=== PATIENT | female | born 1940 | race Caucasian/White ===

== ENCOUNTER 2024-07-17 04:29 | Inpatient (IN) | payer MEDICARE, OTHER ==
[~2024-07-17] VITALS: Ht 162.6 cm; Wt 58.5 kg
[2024-07-17 05:26] LABS: BASOPHILS % (AUTO) 0.4 % (0.0-2.0); EOSINOPHILS # (AUTO) 0.1 K/uL (0.0-0.7); EOSINOPHILS % (AUTO) 1.8 % (0.0-6.0); HEMATOCRIT 35 % (33-45); HEMOGLOBIN 11.6 g/dL (11.5-14.8); LYMPHOCYTES # (AUTO) 1.1 K/uL (0.8-4.8); LYMPHOCYTES % (AUTO) 16.4 % (20.0-44.0); MEAN CORPUSCULAR HEMOGLOBIN 29 PG (26.0-33.0); MEAN CORPUSCULAR HGB CONC 33 g/dl (31.0-36.0); MEAN CORPUSCULAR VOLUME 89 fL (82-100); MONOCYTES # (AUTO) 0.6 K/uL (0.1-1.30); NEUTROPHILS # (AUTO) 4.9 K/uL (1.8-8.9); NEUTROPHILS % (AUTO) 72.4 % (43.0-81.0); PLATELET COUNT (AUTO) 162 K/uL (150-450); RED BLOOD CELL COUNT(AUTO) 3.99 MIL/uL (4.0-5.2); RED CELL DISTRIBUTION WIDTH 13.3 % (11.5-15.0); WHITE BLOOD COUNT (AUTO) 6.8 K/uL (4.3-11.0)
[2024-07-17 05:40] LABS: ALANINE AMINOTRANSFERASE 33 U/L (12-78); ALBUMIN 3.8 g/dL (3.4-5.0); ALCOHOL, BLOOD < 3 mg/dL (0-10); ALKALINE PHOSPHATASE 70 U/L (46-116); ASPARTATE AMINOTRANSFERASE 58 U/L (15-37); BILIRUBIN,DIRECT 0.1 mg/dL (0.0-0.2); BILIRUBIN,TOTAL 0.6 mg/dL (0.2-1.0); CALCIUM, SERUM 10.2 mg/dL (8.5-10.1); CARBON DIOXIDE 27 mmol/L (21-32); CHLORIDE 106 mmol/L (98-107); GLUCOSE 92 mg/dL (74-106); POTASSIUM 4.4 mmol/L (3.5-5.1); SODIUM SERUM 142 mmol/L (136-145); TOTAL PROTEIN, SERUM 6.9 g/dL (6.4-8.2); UREA NITROGEN, BLOOD 55 mg/dL (7-18)
[2024-07-17 05:52] LABS: SALICYLATE 1.2 mg/dL (2.8-20.0)
[2024-07-17 05:53] LABS: ACETAMINOPHEN <10 ug/ml (10-30)
[2024-07-17] MEDS: IV NS 0.9% 1,000 ML BAG IV ONE (06:26)
[2024-07-17] MEDS ORDERED: HALOPERIDOL LACTATE INJ 5 MG/ML VIAL ONE (08:07)
[2024-07-17] MEDS: HALOPERIDOL LACTATE INJ 5 MG/ML VIAL IM STA (08:15)
[2024-07-17] MEDS ORDERED: MAG HYDROX/AL HYDROX/SIMETH 30 ML UDC PO PRN (10:00)
[2024-07-17] MEDS ORDERED: ZOLPIDEM TARTRATE 5 MG TABLET PO PRN (10:00)
[2024-07-17] MEDS ORDERED: MAGNESIUM HYDROXIDE 30 ML UDC PO PRN (10:00)
[2024-07-17] MEDS ORDERED: Z GUARD REMEDY 4 OZ OINT TP PRN (10:00)
[2024-07-17] MEDS ORDERED: ONDANSETRON HCL/PF 4 MG/2 ML VIAL IVP PRN (10:00)
[2024-07-17] MEDS ORDERED: ACETAMINOPHEN 325 MG TABLET PO PRN (10:00)
[2024-07-17] MEDS ORDERED: BUPR-319 PO (12:34)
[2024-07-17] MEDS ORDERED: FOLI0.4T6 PO (12:34)
[2024-07-17] MEDS ORDERED: PANT40TA49 PO (12:34)
[2024-07-17] MEDS ORDERED: BENZ-13 PO (12:34)
[2024-07-17] MEDS ORDERED: ESCI20TA PO (12:34)
[2024-07-17] MEDS ORDERED: METO50TA16 PO (12:34)
[2024-07-17] MEDS ORDERED: WITC1MED22 TP (12:34)
[2024-07-17] MEDS ORDERED: SACU1TAB PO (12:34)
[2024-07-17] MEDS ORDERED: CETI10TA14 PO (12:34)
[2024-07-17] MEDS ORDERED: ALBU8.5H8 IH (12:34)
[2024-07-17] MEDS ORDERED: ATOR20TA PO (12:34)
[2024-07-17 16:00] VITALS: BP 158/62; TEMP 98.6; O2SAT 96
[2024-07-17] MEDS: METOPROLOL TARTRATE 50 MG TABLET PO SCH (17:30)
[2024-07-17 20:00] VITALS: BP 145/62; TEMP 98.4; O2SAT 97
[2024-07-17] MEDS: ATORVASTATIN 10 MG TABLET PO SCH (22:21)
[2024-07-17] MEDS: IV NS 0.9% 1,000 ML IV PRN (22:34)
[2024-07-18 04:00] VITALS: BP 160/67; TEMP 98.5; O2SAT 98
[2024-07-18 07:36] LABS: BASOPHILS % (AUTO) 0.7 % (0.0-2.0); EOSINOPHILS # (AUTO) 0.1 K/uL (0.0-0.7); EOSINOPHILS % (AUTO) 1.9 % (0.0-6.0); HEMATOCRIT 32 % (33-45); HEMOGLOBIN 10.8 g/dL (11.5-14.8); LYMPHOCYTES # (AUTO) 1.4 K/uL (0.8-4.8); LYMPHOCYTES % (AUTO) 25.4 % (20.0-44.0); MEAN CORPUSCULAR HEMOGLOBIN 30 PG (26.0-33.0); MEAN CORPUSCULAR HGB CONC 34 g/dl (31.0-36.0); MEAN CORPUSCULAR VOLUME 89 fL (82-100); MONOCYTES # (AUTO) 0.6 K/uL (0.1-1.30); MONOCYTES % (AUTO) 10.6 % (2.0-12.0); NEUTROPHILS # (AUTO) 3.3 K/uL (1.8-8.9); NEUTROPHILS % (AUTO) 61.4 % (43.0-81.0); PLATELET COUNT (AUTO) 139 K/uL (150-450); RED BLOOD CELL COUNT(AUTO) 3.58 MIL/uL (4.0-5.2); RED CELL DISTRIBUTION WIDTH 13.2 % (11.5-15.0); WHITE BLOOD COUNT (AUTO) 5.5 K/uL (4.3-11.0)
[2024-07-18 08:00] VITALS: BP 158/62; TEMP 98; O2SAT 94
[2024-07-18 08:01] LABS: CALCIUM, SERUM 9.4 mg/dL (8.5-10.1); CARBON DIOXIDE 24 mmol/L (21-32); CHLORIDE 113 mmol/L (98-107); CREATININE 1.1 mg/dL (0.6-1.3); GLUCOSE 89 mg/dL (74-106); MAGNESIUM 1.9 mg/dL (1.8-2.4); PHOSPHORUS 2.6 mg/dL (2.5-4.9); POTASSIUM 4.1 mmol/L (3.5-5.1); SODIUM SERUM 143 mmol/L (136-145); UREA NITROGEN, BLOOD 31 mg/dL (7-18)
[2024-07-18] MEDS: BUPROPION XL 150 MG TAB.ER.24 PO SCH (08:24)
[2024-07-18] MEDS: FOLIC ACID 1 MG TABLET PO SCH (08:24)
[2024-07-18] MEDS: SACUBITRIL/VALSARTAN 24/26MG TABLET PO SCH (08:24)
[2024-07-18] MEDS: ESCITALOPRAM OXALATE (10 MG) 10 MG TABLET PO SCH (08:24)
[2024-07-18] MEDS: PANTOPRAZOLE 40 MG TABLET.DR PO SCH (08:24)
[2024-07-18 16:00] VITALS: BP 147/58; TEMP 97.9; O2SAT 94
[2024-07-18] MEDS: OLANZAPINE 2.5 MG TABLET PO SCH (16:56)
[2024-07-19] VITALS: BP 147/58; TEMP 97.9; O2SAT 94
[2024-07-19] MEDS: CLONIDINE HCL 0.1 MG TABLET PO PRN (06:10)
[2024-07-19 07:58] LABS: BASOPHILS % (AUTO) 0.5 % (0.0-2.0); EOSINOPHILS # (AUTO) 0.2 K/uL (0.0-0.7); EOSINOPHILS % (AUTO) 3.3 % (0.0-6.0); HEMATOCRIT 33 % (33-45); HEMOGLOBIN 10.9 g/dL (11.5-14.8); LYMPHOCYTES # (AUTO) 1.2 K/uL (0.8-4.8); LYMPHOCYTES % (AUTO) 19.1 % (20.0-44.0); MEAN CORPUSCULAR HEMOGLOBIN 30 PG (26.0-33.0); MEAN CORPUSCULAR HGB CONC 33 g/dl (31.0-36.0); MEAN CORPUSCULAR VOLUME 90 fL (82-100); MONOCYTES # (AUTO) 0.5 K/uL (0.1-1.30); MONOCYTES % (AUTO) 8.5 % (2.0-12.0); NEUTROPHILS # (AUTO) 4.2 K/uL (1.8-8.9); NEUTROPHILS % (AUTO) 68.6 % (43.0-81.0); PLATELET COUNT (AUTO) 108 K/uL (150-450); RED BLOOD CELL COUNT(AUTO) 3.66 MIL/uL (4.0-5.2); WHITE BLOOD COUNT (AUTO) 6.1 K/uL (4.3-11.0)
[2024-07-19 08:00] VITALS: BP 155/65; TEMP 97.7; O2SAT 94
[2024-07-19 08:08] LABS: CALCIUM, SERUM 9.1 mg/dL (8.5-10.1); CARBON DIOXIDE 20 mmol/L (21-32); CHLORIDE 114 mmol/L (98-107); GLUCOSE 109 mg/dL (74-106); POTASSIUM 3.9 mmol/L (3.5-5.1); SODIUM SERUM 143 mmol/L (136-145); UREA NITROGEN, BLOOD 27 mg/dL (7-18)
[2024-07-19] MEDS: ENOXAPARIN SODIUM 30 MG/0.3 ML DISP.SYRIN SQ SCH (08:53)
[2024-07-19] MEDS: ENSURE ENLIVE 237 ML LIQUID (VANILLA) PO SCH (12:53)
[2024-07-19] MEDS: OLANZAPINE 2.5 MG TABLET PO SCH (13:01)
[2024-07-19 16:00] VITALS: BP 164/69; TEMP 97.3; O2SAT 94
[2024-07-19 21:45] VITALS: BP 188/74; TEMP 98.3; O2SAT 98
[2024-07-19] MEDS: SACUBITRIL/VALSARTAN 24/26MG TABLET PO SCH (22:07)
[2024-07-20 04:00] VITALS: BP 186/75; TEMP 98.3
[2024-07-20 08:00] VITALS: BP 186/75; TEMP 97.3; O2SAT 98
[2024-07-20 10:00] VITALS: BP 136/67; TEMP 97.4; O2SAT 98
[2024-07-20 16:00] VITALS: BP 147/64; TEMP 97.8; O2SAT 98
[2024-07-20 20:00] VITALS: BP_SYST 124; BP_SYST 146; BP_DIAS 85; BP_DIAS 90; TEMP 98; TEMP 98.2; O2SAT 93; O2SAT 97
[2024-07-21 04:00] VITALS: BP 148/75; TEMP 98.1; O2SAT 97
[2024-07-21 07:06] LABS: APPEARANCE,URINE CLEAR (CLEAR); BILIRUBIN,URINE NEGATIVE (NEGATIVE); BLOOD, URINE NEGATIVE Ery/uL (NEGATIVE); COLOR,URINE YELLOW (YELLOW); KETONES,URINE NEGATIVE (NEGATIVE); LEUKOCYTE ESTERASE ,URINE TRACE (NEGATIVE); NITRITE, URINE NEGATIVE (NEGATIVE); PH,URINE 5.5 (5.0-8.0); PROTEIN,URINE NEGATIVE (NEGATIVE); UGLUCOSE NEGATIVE (NEGATIVE); UROBILINOGEN,URINE 0.2 EU/dL (0.2)
[2024-07-21 07:26] LABS: ADD URINE CULTURE NO; BACTERIA,URINE None seen /HPF (None Seen); RBC,URINE 0-2 /HPF (0-2); TRICHOMONAS,URINE None Seen /HPF (None Seen); YEAST,URINE None Seen /HPF (None Seen)
[2024-07-21 07:27] LABS: FATTY CASTS,URINE 0-1 /LPF (None Seen); MUCUS,URINE Few /LPF (None Seen)
[2024-07-21 08:00] VITALS: BP 195/71; TEMP 97.1; O2SAT 96
[2024-07-21] MEDS: AMLODIPINE BESYLATE 2.5 MG TABLET PO SCH (08:50)
[2024-07-21 09:30] LABS: BASOPHILS % (AUTO) 0.4 % (0.0-2.0); EOSINOPHILS # (AUTO) 0.3 K/uL (0.0-0.7); EOSINOPHILS % (AUTO) 5.2 % (0.0-6.0); HEMATOCRIT 36 % (33-45); HEMOGLOBIN 12.1 g/dL (11.5-14.8); LYMPHOCYTES # (AUTO) 0.9 K/uL (0.8-4.8); LYMPHOCYTES % (AUTO) 15.3 % (20.0-44.0); MEAN CORPUSCULAR HEMOGLOBIN 30 PG (26.0-33.0); MEAN CORPUSCULAR HGB CONC 34 g/dl (31.0-36.0); MEAN CORPUSCULAR VOLUME 88 fL (82-100); MONOCYTES # (AUTO) 0.5 K/uL (0.1-1.30); NEUTROPHILS # (AUTO) 4.2 K/uL (1.8-8.9); NEUTROPHILS % (AUTO) 71.1 % (43.0-81.0); PLATELET COUNT (AUTO) 153 K/uL (150-450); RED BLOOD CELL COUNT(AUTO) 4.08 MIL/uL (4.0-5.2)
[2024-07-21 09:43] LABS: CALCIUM, SERUM 9.9 mg/dL (8.5-10.1); CARBON DIOXIDE 28 mmol/L (21-32); CHLORIDE 108 mmol/L (98-107); GLUCOSE 95 mg/dL (74-106); POTASSIUM 4.4 mmol/L (3.5-5.1); SODIUM SERUM 145 mmol/L (136-145); UREA NITROGEN, BLOOD 40 mg/dL (7-18)
[2024-07-21 16:00] VITALS: BP 144/61; TEMP 97.1; O2SAT 98
[2024-07-21 18:00] VITALS: BP 144/61; TEMP 97.1; O2SAT 98
[2024-07-21] MEDS: CEFTRIAXONE 1 G in IV D5W 50 ML IV SCH (18:21)
[2024-07-21 20:00] VITALS: BP 127/68; TEMP 98.6; O2SAT 98
[2024-07-22 04:00] VITALS: BP 161/68; TEMP 98.5; O2SAT 95
[2024-07-22 07:20] LABS: CALCIUM, SERUM 9.6 mg/dL (8.5-10.1); CARBON DIOXIDE 31 mmol/L (21-32); CHLORIDE 107 mmol/L (98-107); CREATININE 1.1 mg/dL (0.6-1.3); GLUCOSE 97 mg/dL (74-106); POTASSIUM 4.1 mmol/L (3.5-5.1); SODIUM SERUM 142 mmol/L (136-145); UREA NITROGEN, BLOOD 51 mg/dL (7-18)
[2024-07-22 07:21] LABS: BASOPHILS % (AUTO) 0.6 % (0.0-2.0); EOSINOPHILS # (AUTO) 0.3 K/uL (0.0-0.7); EOSINOPHILS % (AUTO) 4.9 % (0.0-6.0); HEMATOCRIT 35 % (33-45); HEMOGLOBIN 11.5 g/dL (11.5-14.8); LYMPHOCYTES # (AUTO) 1.4 K/uL (0.8-4.8); LYMPHOCYTES % (AUTO) 24.7 % (20.0-44.0); MEAN CORPUSCULAR HEMOGLOBIN 29 PG (26.0-33.0); MEAN CORPUSCULAR HGB CONC 33 g/dl (31.0-36.0); MEAN CORPUSCULAR VOLUME 88 fL (82-100); MONOCYTES # (AUTO) 0.6 K/uL (0.1-1.30); MONOCYTES % (AUTO) 10.2 % (2.0-12.0); NEUTROPHILS # (AUTO) 3.4 K/uL (1.8-8.9); NEUTROPHILS % (AUTO) 59.6 % (43.0-81.0); PLATELET COUNT (AUTO) 142 K/uL (150-450); RED BLOOD CELL COUNT(AUTO) 3.94 MIL/uL (4.0-5.2); RED CELL DISTRIBUTION WIDTH 13.3 % (11.5-15.0); WHITE BLOOD COUNT (AUTO) 5.8 K/uL (4.3-11.0)
[2024-07-22 08:00] VITALS: BP 133/54; TEMP 97.9; O2SAT 95
[2024-07-22 16:00] VITALS: BP 119/48; TEMP 97.7; O2SAT 95
[2024-07-22 20:00] VITALS: BP 113/46; TEMP 98.2; O2SAT 95
[2024-07-22] MEDS: IV NS 0.9% 1,000 ML BAG IV PRN (23:44)
[2024-07-23 04:00] VITALS: BP 116/61; TEMP 98.4; O2SAT 95
[2024-07-23 07:24] LABS: BASOPHILS % (AUTO) 0.8 % (0.0-2.0); EOSINOPHILS # (AUTO) 0.3 K/uL (0.0-0.7); EOSINOPHILS % (AUTO) 4.6 % (0.0-6.0); HEMATOCRIT 32 % (33-45); HEMOGLOBIN 10.5 g/dL (11.5-14.8); LYMPHOCYTES # (AUTO) 1.4 K/uL (0.8-4.8); LYMPHOCYTES % (AUTO) 24.3 % (20.0-44.0); MEAN CORPUSCULAR HEMOGLOBIN 29 PG (26.0-33.0); MEAN CORPUSCULAR HGB CONC 33 g/dl (31.0-36.0); MEAN CORPUSCULAR VOLUME 89 fL (82-100); MONOCYTES # (AUTO) 0.6 K/uL (0.1-1.30); MONOCYTES % (AUTO) 10.7 % (2.0-12.0); NEUTROPHILS # (AUTO) 3.5 K/uL (1.8-8.9); NEUTROPHILS % (AUTO) 59.6 % (43.0-81.0); PLATELET COUNT (AUTO) 144 K/uL (150-450); RED CELL DISTRIBUTION WIDTH 13.5 % (11.5-15.0); WHITE BLOOD COUNT (AUTO) 5.9 K/uL (4.3-11.0)
[2024-07-23 07:28] LABS: CALCIUM, SERUM 9.4 mg/dL (8.5-10.1); CARBON DIOXIDE 32 mmol/L (21-32); CHLORIDE 109 mmol/L (98-107); CREATININE 1.3 mg/dL (0.6-1.3); GLUCOSE 101 mg/dL (74-106); POTASSIUM 4.6 mmol/L (3.5-5.1); SODIUM SERUM 144 mmol/L (136-145); UREA NITROGEN, BLOOD 60 mg/dL (7-18)
[2024-07-23 08:00] VITALS: BP 170/68; TEMP 97.7; O2SAT 95
[2024-07-23] MEDS ORDERED: Olanzapine PO (10:08)
[2024-07-23] MEDS ORDERED: ENOX30DI SQ (10:08)
[2024-07-23] MEDS ORDERED: LACT-246 PO (10:08)
[2024-07-23] MEDS ORDERED: CEPH-570 PO (12:59)
[2024-07-23] MEDS ORDERED: IV NS 0.9% 1,000 ML BAG IV PRN (13:00)
[2024-07-23] MEDS: IV NS 0.9% 1,000 ML IV PRN (14:44)
[2024-07-23 16:00] VITALS: BP 136/62; TEMP 97.7; O2SAT 97
[2024-07-23 18:00] VITALS: BP 136/62; TEMP 97.7; O2SAT 97
[2024-07-23 20:00] VITALS: BP 157/62; TEMP 98.4; O2SAT 97
[2024-07-24 04:58] VITALS: BP 151/65; TEMP 98.2; O2SAT 95
[2024-07-24 08:00] VITALS: BP 157/65; TEMP 98.2; O2SAT 97
[2024-07-24] MEDS: AZITHROMYCIN 250 MG TABLET PO SCH (12:22)
[2024-07-24 12:29] LABS: CALCIUM, SERUM 9.4 mg/dL (8.5-10.1); CARBON DIOXIDE 28 mmol/L (21-32); CHLORIDE 108 mmol/L (98-107); CREATININE 1.1 mg/dL (0.6-1.3); GLUCOSE 85 mg/dL (74-106); POTASSIUM 4.1 mmol/L (3.5-5.1); SODIUM SERUM 147 mmol/L (136-145); UREA NITROGEN, BLOOD 47 mg/dL (7-18)
[2024-07-24 16:00] VITALS: BP 146/68; TEMP 97.8; O2SAT 96
[2024-07-24 20:00] VITALS: BP 181/71; TEMP 99.3; O2SAT 97
[2024-07-24] MEDS: ALBUTEROL SULFATE 8 GM HFA.AER.AD IH PRN (20:23)
[2024-07-24] MEDS ORDERED: ALBUTEROL FS 2.5 MG/3 ML VIAL.NEB NEB PRN (21:00)
[2024-07-25 04:00] VITALS: BP 139/63; TEMP 98.6; O2SAT 95
[2024-07-25 06:49] LABS: BASOPHILS # (AUTO) 0.1 K/uL (0.0-0.2); BASOPHILS % (AUTO) 0.9 % (0.0-2.0); EOSINOPHILS # (AUTO) 0.4 K/uL (0.0-0.7); EOSINOPHILS % (AUTO) 6.2 % (0.0-6.0); HEMATOCRIT 34 % (33-45); HEMOGLOBIN 11.4 g/dL (11.5-14.8); LYMPHOCYTES # (AUTO) 1.7 K/uL (0.8-4.8); LYMPHOCYTES % (AUTO) 27.5 % (20.0-44.0); MEAN CORPUSCULAR HEMOGLOBIN 31 PG (26.0-33.0); MEAN CORPUSCULAR HGB CONC 34 g/dl (31.0-36.0); MEAN CORPUSCULAR VOLUME 90 fL (82-100); MONOCYTES # (AUTO) 0.6 K/uL (0.1-1.30); MONOCYTES % (AUTO) 9.8 % (2.0-12.0); NEUTROPHILS # (AUTO) 3.4 K/uL (1.8-8.9); NEUTROPHILS % (AUTO) 55.6 % (43.0-81.0); PLATELET COUNT (AUTO) 147 K/uL (150-450); RED BLOOD CELL COUNT(AUTO) 3.71 MIL/uL (4.0-5.2); RED CELL DISTRIBUTION WIDTH 13.5 % (11.5-15.0); WHITE BLOOD COUNT (AUTO) 6.2 K/uL (4.3-11.0)
[2024-07-25 07:00] LABS: CALCIUM, SERUM 9.5 mg/dL (8.5-10.1); CARBON DIOXIDE 25 mmol/L (21-32); CHLORIDE 107 mmol/L (98-107); CREATININE 1.1 mg/dL (0.6-1.3); GLUCOSE 113 mg/dL (74-106); MAGNESIUM 2.1 mg/dL (1.8-2.4); PHOSPHORUS 4.1 mg/dL (2.5-4.9); POTASSIUM 4.7 mmol/L (3.5-5.1); SODIUM SERUM 144 mmol/L (136-145); UREA NITROGEN, BLOOD 49 mg/dL (7-18)
[2024-07-25] MEDS ORDERED: IV 1/2NS 1000 ML 1,000 ML IV PRN (07:00)
[2024-07-25 08:00] VITALS: BP 150/72; TEMP 97.6; O2SAT 94; O2SAT 95
[2024-07-25 08:25] VITALS: BP 150/72
== END 2024-07-25 14:51 | DRG 177 ==
LOC: ER 04:31 → MEDSG1 13:03
PROVIDERS: ADMIT Nurse Practitioner Acute Care; ATTEND Nurse Practitioner Acute Care
DX: U07.1 COVID-19 (principal); E43 Unspecified severe protein-calorie malnutrition; G93.41 Metabolic encephalopathy; N17.0 Acute kidney failure with tubular necrosis; F03.93 Unspecified dementia, unspecified severity, with mood disturbance; F03.92 Unspecified dementia, unspecified severity, with psychotic disturbance; F03.911 Unspecified dementia, unspecified severity, with agitation; F33.3 Major depressive disorder, recurrent, severe with psychotic symptoms; R64 Cachexia; E87.0 Hyperosmolality and hypernatremia; N39.0 Urinary tract infection, site not specified; M79.7 Fibromyalgia; I10 Essential (primary) hypertension; Z90.49 Acquired absence of other specified parts of digestive tract; Z98.891 History of uterine scar from previous surgery; E86.9 Volume depletion, unspecified; Z98.890 Other specified postprocedural states; F39 Unspecified mood [affective] disorder; F29 Unspecified psychosis not due to a substance or known physiological condition; D64.9 Anemia, unspecified; J06.9 Acute upper respiratory infection, unspecified; B96.89 Other specified bacterial agents as the cause of diseases classified elsewhere; E88.9 Metabolic disorder, unspecified; R22.1 Localized swelling, mass and lump, neck; Z87.440 Personal history of urinary (tract) infections; Z68.22 Body mass index [BMI] 22.0-22.9, adult
CPT/HCPCS: 36415; 71045-TC; 76770-TC; 80048-TC; 80076-TC; 81001; 83735-TC; 84100-TC; 85025-TC; 85378-TC; 86140-TC; 87086-TC; 93880-TC; 93970-TC; 97110-TC; 97116-TC; 97530-TC; A4223; G0378; G0480; J0696; J1630; J1650; J3490; J7030; J7050; J7060